=== PATIENT | male | born 1955 | race Caucasian/White ===

== ENCOUNTER 2022-01-17 08:05 | Outpatient (CLI) | payer MEDICARE, OTHER, SELFPAY ==
--- NOTE | 2022-01-17 08:15 | MR_ITS ---
[facility] [address] [facility] [address] Phone:?[phone] Fax:?[phone] Referring Physician Information: Librado Lee M.D. [address] [place] [id number] Phone:?[phone] Fax:?[phone] Patient:?Duke Camacho D.O.B:?1955 Sex:?Male Phone:?[phone] [facility] MRN:?[id number] Exam Date:?01/17/2022 ? EXAM: MRI of the RIGHT SHOULDER, without contrast CLINICAL: Male, 66 years old, with right shoulder pain and decreased range of motion. INDICATION: Evaluate rotator cuff. PRIOR SURGERY: None reported. PLAIN FILMS: None available. COMPARISONS: No prior MRIs available. TECHNICAL: Using a 1.5T MR scanner and a localizing shoulder surface coil: 3.0 mm?coronal obliques: PD, T2, STIR 3.0 mm?sagittal obliques: PD, T2 3.0 mm?axials: PD, T2 SEDATION: None. CONTRAST: None. IMPRESSION: 1. Findings in keeping with those which can be associated with any clinical evidence of intermediate approaching late stage acromiohumeral impingement/rotator cuff syndrome. 2. Broad-based attenuation of the distal supraspinatus tendon including smaller less than 1 cm slender full-thickness attenuation/tear and mild muscle atrophy. 3. Marked narrowing of acromiohumeral distance associated with subacromial spur/enthesophyte and thickened coracoacromial ligament. No significant inferior AC joint hypertrophy. 4. Fluid in the subcoracoid greater than subacromial heights deltoid bursa/space 5. Shallow deep surface attenuation of the distal superior subscapularis tendon without larger or full-thickness tear. 6. Mild long head of the biceps tendinosis. 7. No defined labral tears. 8. No glenohumeral chondromalacia/osteoarthritis. FINDINGS: Glenohumeral joint: Effusion/cyst: Moderate No paralabral ganglion cyst. Articular cartilage: Humeral head: No osteochondral abnormalities. Glenoid: No osteochondral abnormalities. Loose bodies: No demonstrable loose bodies. Inferior glenohumeral ligament/axillary recess: The axillary recess is normal in thickness and signal. No evidence of adhesive capsulitis or capsuloligamentous injury. Labrum: No labral tears. Bones: Proximal humerus: Mild cortical irregularity and hyperostosis of the anterior greater tuberosity underlies distal insertional rotator cuff tendinopathy/tear detailed below. The proximal humerus is otherwise intact. No humeral Hill-Sachs or reverse Hill- Sachs lesion/impaction or contusion. Glenoid: No fracture or marrow edema/pathology. No osseous Bankart lesion. Coracoacromial arch: Acromion morphology: Anterolateral downsloping of type II acromion with moderate anteriorly extending subacromial spur/enthesophyte and associated thickened/low- lying acromial attachment of the coracoacromial ligament contribute encroachment upon the subacromial space (sagittal PD & T2 series 7 & 8, images 7 & 6; coronal PD & T2 series 5 & 6, images 18-15). No mesoacromion or preacromion. Acromiohumeral space: Markedly narrowed at a minimum of 2 mm associated with the above morphology. Coracohumeral space: 10 mm bony distance. 7 mm soft tissue distance. 12 mm coracoid overlap. Acromioclavicular joint: Joint: Slight degenerative hypertrophy of acromioclavicular joint slightly encroaches upon the subacromial space without encroachment upon the underlying supraspinatus. Ligaments: Coracoclavicular ligaments are intact. Bursae: Subacromial-subdeltoid: Moderate subacromial-subdeltoid bursal edema/bursitis. Subcoracoid: Large amount of fluid in the subcoracoid space, unable to exclude the possibility of associated element of coracoid impingement although this is perhaps due to accumulation associated with extension of fluid from the subacromial space (sagittal T2 series 8, images 17-11; axial T2 series 3, images 43-55). Rotator cuff and muscles/tendons: Supraspinatus: Marked attenuation of the distal aspect of most of the supraspinatus tendon with more localized less than 1 cm slender full-thickness attenuation/tear, associated with small less than 5 mm of tendon fiber retraction. Associated mild decreased supraspinatus muscle bulk and Goutallier stage 2 fatty infiltration without more marked atrophy. Infraspinatus: Mild tendinosis of the adjacent anterior infraspinatus tendon without convincing defined tear. No tendon or myotendinous junction retraction. No muscle atrophy. Teres minor: No tendinopathy, tear or atrophy. Subscapularis: Shallow deep surface attenuation of the distal superior subscapularis tendon without full-thickness tear (axial image 18). Deltoid: No strain or atrophy. Biceps tendon, long head: Mild tendinosis of the intra-articular segment of the long head of the biceps tendon without tear or displacement and yet difficult to exclude early stage, or potential anatomic predisposition to, biceps david lesion (axial images 21-16; sagittal images 12-9). Axilla: No axillary masses or abnormally enlarged lymphadenopathy. [facility] Electronically signed on 01/18/2022 7:28:00 AM by Richard Kraus M.D.
== END 2022-01-17 08:06 | disposition home or self-care (01) ==
LOC: MRI 08:07
PROVIDERS: PCP Family Medicine; Visit Provider Orthopaedic Surgery
DX: M25.511 Pain in right shoulder (principal); M75.101 Unspecified rotator cuff tear or rupture of right shoulder, not specified as traumatic
CPT/HCPCS: 73221

== ENCOUNTER 2022-03-08 07:47 | Day surgery (SDC) | payer MEDICARE, OTHER, SELFPAY ==
[2022-03-08] VITALS (36 sets, daily range): BP systolic 97–129; BP diastolic 55–92; PULSE 65–88; RESP 8–23; TEMP 36.3–36.7; O2SAT 89–97; BMI 25.0
[2022-03-08] MEDS: ACETAMINOPHEN 500 MG TABLET 1000 MG PO (08:06)
[2022-03-08] MEDS: CELECOXIB 200 MG CAPSULE PO (08:06)
[2022-03-08] MEDS: SODIUM CHLORIDE 0.9 % (FLUSH) 10 ML SYRINGE IVF (08:20)
[2022-03-08] MEDS: LACTATED RINGERS 1000 ML 1,000 ML 100 ML IV ×2 (08:20→10:06)
[2022-03-08] MEDS: MIDAZOLAM HCL 1 MG/ML inj IVP (08:36)
[2022-03-08] MEDS: fentaNYL 100 MCG/2 ML inj IVP (08:36)
--- NOTE | 2022-03-08 08:37 | SUR.PREOP ---
TIME?OUT:?0835 PT/RN/MDA?VERIFICATION?OF?SURGICAL?SITE,?PROCEDURE,?AND?CONSENT OBTAINED?PRIOR?TO?INVASIVE?PROCEDURE.
[2022-03-08] MEDS: CEFAZOLIN 2 GM INJ IVP (09:15)
--- NOTE | 2022-03-08 10:50 | PM.ORPRC ---
Procedure Note Date of procedure: 03/08/22 Procedure: SURGEON: Librado Lee MD EMERGENCY DEPARTMENT COORDINATOR: Tanvi Allen PA-C PREOPERATIVE DIAGNOSIS: Right shoulder rotator cuff tear, AC joint arthrosis, biceps tendinopathy POSTOPERATIVE DIAGNOSIS: Right shoulder rotator cuff tear, AC joint arthrosis, biceps tendinopathy NAME OF OPERATION: Right shoulder arthroscopic subacromial decompression, distal clavicle excision, mini open rotator cuff repair, biceps tenodesis ANESTHESIA: Supraclavicular block plus general endotracheal ESTIMATED BLOOD LOSS: 5 mL COMPLICATIONS: None SPECIMENS: None DRAINS: None PREOPERATIVE ANTIBIOTICS: Ancef 2 grams INDICATIONS: The patient is a 66-year-old male with a history of right shoulder pain secondary to the above diagnoses. Despite appropriate non operative management, they continue to have symptoms. Operative intervention was recommended. The risks, benefits and expected outcomes were discussed in detail. These included but were not limited to: Infection, bleeding, injury to blood vessel or nerve, venous thromboembolism. All questions were answered to their satisfaction. PROCEDURE: A supraclavicular block was placed by Anesthesia. General anesthesia was administered. The patient was placed in the high beach chair position. The right shoulder was prepped and draped in the usual sterile fashion. The glenohumeral joint was infiltrated with 20 mL of normal saline with epinephrine. The posterior portal was established, the arthroscope was introduced. The anterior portal was established, Diagnostic arthroscopy was performed with findings as follows: The biceps has some tendinopathy, right at its insertion. The anterior, posterior and superior labrum are normal. Articular surfaces on the humeral head and glenoid are normal. There are no loose bodies. There is a full-thickness tear of the supraspinatus. The biceps was tenotomized with the arthroscopic scissors. The stump was debrided with the shaver. The arthroscope was placed in the subacromial space, the lateral portal was established. The Arthrex [place] was used to dissect the acromion free. The CA ligament was recessed off the anterior acromion, the AC joint was exposed. The acromioplasty was performed with the bur in the posterior portal. The bur was then placed in the lateral portal and the lateral and anterior aspect of the acromion were resected. The undersurface of the distal clavicle was resected through the lateral portal. Finally, the bur was placed in the anterior portal and the remainder of the distal clavicle was resected for a total of 10 mm. An accessory anterolateral portal was placed. The subacromial/subdeltoid bursa was aggressively debrided. There is a full-thickness tear of the supraspinatus. Arthroscopic instruments were removed. The accessory anterolateral portal was extended proximally and distally, subcutaneous dissection was taken with electrocautery to the deltoid. The deltoid was divided in line with its fibers. The static retractor was placed. The subacromial/subdeltoid bursa was debrided with the Barrientos scissors. There were a few remaining fibers still attached to the anterior aspect of the tuberosity. These were released with the 15 blade, extending into the bicipital groove and the upper border of the subscap. The superior glenohumeral ligament was released and debrided. The upper border of the lesser and the greater tuberosity were debrided to punctate bleeding bone using the arthroscopic bur. A fiber link was placed in the biceps. A fiber tape was placed in the subscap in an inverted mattress. The sutures were taken to a SwiveLock anchor located in the upper border of the lesser tuberosity, completing the upper subscap repair and biceps tenodesis. Two Arthrex [employer] SwiveLock anchors were placed just off the articular surface, in the greater tuberosity. Both limbs of the FiberWire and fiber tape were passed using the scorpion. A fiber link was placed in the leading edge of the rotator cuff x2. We tied the 2 central FiberWire sutures over the rotator cuff. We then proceeded with a lateral row of SwiveLock anchors x 2 crossing the FiberTape and incorporating the FiberWire and fiber link into each lateral row anchor. This provides an anatomic, watertight repair of the rotator cuff. There is no tension on the repair with the shoulder at 0? abduction. The wound was irrigated with normal saline off the pump. The deltoid was repaired with an 0 Vicryl in an interrupted [id number] fashion. Subcutaneous tissues were closed with a 3-0 Vicryl. Skin was closed with a 3-0 Monocryl in a subcuticular fashion. A dry dressing, polar care and sling were applied. Sponge and needle counts were correct x2. The patient tolerated the procedure well. There were no apparent complications. They were carefully transferred to the hospital bed and taken to the postanesthesia care unit in satisfactory condition. PLAN: The patient will be discharged to home. No active range of motion of the shoulder will be allowed for 6 weeks postoperatively. They can work on active range of motion of the elbow, wrist and fingers. They will follow up in the office next week for a wound check and an AP and transscapular Y-view of the shoulder prior to being seen.
[2022-03-08] MEDS: SODIUM CHLORIDE IRRIG SOLUTION 12,000 ML, EPINEPHrine 4 MG IRRIGATION (10:54)
--- NOTE | 2022-03-08 11:20 | W.ANESCHARGE ---
Anesthesia Charges Start Date/Time Anesthesia Start Date: 03/08/22 Anesthesia Start Time: 09:04 Stop Date/Time Anesthesia Stop Date: 03/08/22 Anesthesia Stop Time: 11:20 Summary Emergency: No
--- NOTE | 2022-03-08 12:19 | W.ANESCHARGE ---
Anesthesia Charges Start Date/Time Anesthesia Start Date: 03/08/22 Anesthesia Start Time: 09:04 Stop Date/Time Anesthesia Stop Date: 03/08/22 Anesthesia Stop Time: 11:20 Summary Emergency: No
--- NOTE | 2022-03-08 12:20 | P.NB_ITS ---
Nerve Block Nerve Block Date Seen: 03/08/22 Type of block requested by surgeon for post-operative analgesia: interscalene Side: right Time out performed: Yes Verification of patient name: Yes Verification of date of : Yes Site marking: site marked Name of person performing procedure: Frank Continuous monitoring Was continuous monitoring of O2 sat, B/P, court recording monitor, recorded every 15 minutes?: Yes Procedure Checklist: sterile prep, needles and gloves Ultrasound guided. Images saved: Yes Medications given in 5ml increments after negative aspiration: Ropivicaine %: 0.5 mL: 20 Needle gauge: 22 Decadron (mg): 10 Precedex (mcg): 25 Patient tolerated procedure well: Yes Block Charges Block Charge (with Pro Fee): Brachial Plexus Use of Ultrasound Machine for Block: Yes- US Guidance/pain block
== END 2022-03-08 13:28 | disposition home or self-care (01) ==
PROVIDERS: PCP Family Medicine; Visit Provider Orthopaedic Surgery
PROC: (CPT 23412; principal; 2022-03-08 09:30)
DX: M75.121 Complete rotator cuff tear or rupture of right shoulder, not specified as traumatic (principal); M75.21 Bicipital tendinitis, right shoulder; M19.011 Primary osteoarthritis, right shoulder
CPT/HCPCS: 29826; 29824; 29828; 23412; 1630; 64415; 76942; A9270; C1713; J0171; J0330; J0690; J1100; J2250; J2370; J2405; J2795; J3010; J7120

== ENCOUNTER 2022-06-21 13:00 | Outpatient (RCR) | payer MEDICARE, OTHER, SELFPAY | END 2022-06-21 13:27 | disposition home or self-care (01) | PROVIDERS: PCP Family Medicine; Visit Provider Physician Assistant Surgical | DX: M75.121 Complete rotator cuff tear or rupture of right shoulder, not specified as traumatic (principal); Z51.89 Encounter for other specified aftercare | CPT/HCPCS: 97110; 97140; 97161 ==

== ENCOUNTER 2023-09-05 00:56 | Emergency (ER) | payer MEDICARE, OTHER, SELFPAY ==
[2023-09-05 01:00] VITALS: BP 183/96; PULSE 64; RESP 20; TEMP 37.3; O2SAT 96; BMI 24.1
--- NOTE | 2023-09-05 01:11 | PC.NURSE ---
Pt came in writhing in pain with c/o right lower abd pain. States he has never had pain like this before. Denies any abd surgeries. Pt able to stand and void very concentrated dark lia urine. All cares explained.
--- NOTE | 2023-09-05 01:12 | ED.GENADULT ---
HPI - General Adult General Chief complaint: Abdominal Pain Stated complaint: severe abdominal pain Time Seen by Provider: 09/05/23 01:04 History of Present Illness HPI narrative: Old male presents to the ED with right-sided flank and lower abdominal pain that started 3 days ago. Initially dull and achy on Monday and actually improved significantly until 7:00 p.m. tonight when the pain came back suddenly an intensely, currently rating as 7/10. Radiates into the back and groin area a bit. No history of hernia. No trauma or injury. Last bowel movement was yesterday morning, normal. No bloody stools. No nausea or vomiting. He made his own dinner, tater tot casserole. No difficulty eating tonight. Did not try taking any Tylenol or ibuprofen. Pain has currently been present about 6 hours. No prior history of similar symptoms. No prior history of abdominal surgeries. No prior history of kidney stones. No family history of kidney stones. Pain does seem to come in intense waves. Past medical history notable for depression. Home meds are sertraline and simvastatin. Denies any prior cardiac history. Nonsmoker, denies alcohol intake. ROS is notable for the flank area symptoms as above only, otherwise denies times 12 systems. Related Data Home Medications Medication Instructions Recorded Confirmed sertraline 100 mg tablet 100 mg PO DAILY 01/10/22 09/05/23 simvastatin 40 mg tablet 40 mg PO .Bedtime 01/10/22 09/05/23 Previous Rx's Medication Instructions Recorded tamsulosin 0.4 mg capsule 0.4 mg PO DAILY #7 caps 09/05/23 Allergies Allergy/AdvReac Type Severity Reaction Status Date / Time codeine Allergy Intermediate Verified 05/30/22 13:15 [facility] Medical History Tendinopathy of hip ?M67.959 - Unspecified disorder of synovium and tendon, unspecified thigh (ICD-10) Labral tear of left hip joint ?S73.192A - Other sprain of left hip, initial encounter (ICD-10) Labral tear of right hip joint ?S73.191A - Other sprain of right hip, initial encounter (ICD-10) 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 - Other specified joint disorders, right hip (ICD-10) Osteoarthritis of right hip ?M16.11 - Unilateral primary osteoarthritis, right hip (ICD-10) Surgical History History of arthroscopy of right shoulder (03/08/22) ?Z98.890 - Other specified postprocedural states (ICD-10) Previous back surgery (~2010) ?Z98.890 - Other specified postprocedural states (ICD-10) Family History Sister Colon cancer Father Myocardial infarction Social History Narrative: , retired, no kids Smoking Status: Never smoker Do you use any of these nicotine containing products: None Second hand tobacco smoke exposure: No How often do you have a drink containing alcohol: never How often do you have six or more drinks on one occasion: Never AUDIT-C Alcohol total score: 0 Non-prescribed substance use: denies use Caffeine: No Are you now , , , , never or living with a partner: Social isolation score (0-1 are the most socially isolated patients): 0 Exam Const: Vital Signs, click to edit/add: Vital Signs - 24 hr 09/05/23 01:00 09/05/23 01:47 Temperature 99.1 F Pulse Rate [Pulse Oximeter] 64 Respiratory Rate 20 18 Blood Pressure [Le ft Upper Arm] 146/64 H Blood Pressure [Ri ght Upper Arm] 183/96 H Pulse Oximetry 96 94 Oxygen Delivery Me thod Room Air Room Air Documenting provider has reviewed patient's vital signs: yes Common normals: alert Other: Mild intermittent distress. Answers questions appropriately. Insight seems moderate. HENMT: Common normals: normocephalic Head and scalp: normocephalic Face and sinus: normal facial exam Mouth: oral and palatal mucosa normal Throat: posterior oropharynx normal Eye: Common normals: conjunctivae normal General eye: normal appearance of both eyes Conjunctiva: conjunctiva(e) normal Neck & C-Spine: Common normals: full ROM and no lymphadenopathy Resp: Common normals: normal respiratory effort and clear to auscultation bilaterally Effort & inspection: able to speak in complete sentences Auscultation: clear to auscultation bilaterally Cardio: Common normals: regular rate, regular rhythm, S1 normal heart sound, S2 normal heart sound and no murmurs Rate: regular rate Rhythm: regular rhythm Heart sounds: S1 normal and S2 normal GI: Common normals: Normal to inspection, nondistended, normoactive bowel sounds present, soft to palpation, no hepatosplenomegaly and no masses Palpation: soft and no hepatosplenomegaly Other: Mild tenderness to right side of abdomen but not focal. No mass, no hernias. No rebound tenderness or guarding : Other: Does have some right-sided CVA tenderness. Back & Pelvis: Thoracic spine/upper back: normal to inspection Lumbar spine/lower back: normal to inspection Extremity: Common normals: normal to inspection, normal capillary refill and no pedal edema Neuro: Sensorium/orientation: alert Motor exam: strength 5/5 throughout and no movement abnormalities noted Psych: Appearance: grossly normal Attitude: engaged Activity/motor behavior: appropriate eye contact Insight: fair Judgement: fair Skin: Common normals: no rashes or lesions noted General skin exam: no rashes or lesions noted Course Course ED Course: Right abdominal/flank pain most suspicious for kidney stone. Other differential diagnoses include appendicitis, bowel obstruction, pancreatitis, gallbladder disease, gastroenteritis, incarcerated hernia, musculoskeletal problem, radiculopathy, among others. Strong suspicion for kidney stone. Recommend urinalysis, typical abdominal labs. Zofran and Toradol for symptom control. Await findings. Reevaluation(s) Time of Reevaluation #1: 02:05 Reevaluation #1: Patient had marked improvement of his pain with Toradol. I reviewed the findings of the CT. I am measuring his stone at 5 mm, the radiologist at 4 mm. Labs are reassuring. Stone will likely pass with no intervention. Because I am getting in at 5 mm, I did place a referral to Urology though I doubt that he will need it. We discussed straining his urine, I do not think he needs a stone analysis I did not see a lot of other stones up in his kidneys. Will give prescription for Toradol. Gave 1st dose of Flomax here in the ED to help with spasm. Additional supply will be sent to his pharmacy. Counseled on weakness, symptoms of infection, severe hematuria all as reasons to come back to the ED. He verbalizes understanding and agreement. Counseled to push fluids, lots of movement. Referral center will call to schedule urology visit which can likely be canceled if he passes the stone. All questions answered, see discharge instructions Vital Signs Vital signs: Initial Vital Signs Temperature 99.1 F 09/05/23 01:00 Temperature Source Temporal Artery Scan 09/05/23 01:00 Pulse Rate 64 09/05/23 01:00 Respiratory Rate 20 09/05/23 01:00 Blood Pressure 183/96 H 09/05/23 01:00 Blood Pressure Mean 125 H 09/05/23 01:00 Blood Pressure Position Sitting 09/05/23 01:00 Pulse Oximetry 96 09/05/23 01:00 Oxygen Delivery Method Room Air 09/05/23 01:00 Vital Signs Temperature 99.1 F 09/05/23 01:00 Pulse Rate 64 09/05/23 01:00 Respiratory Rate 20 09/05/23 01:00 Blood Pressure 183/96 H 09/05/23 01:00 Pulse Oximetry 96 09/05/23 01:00 Oxygen Delivery Method Room Air 09/05/23 01:00 Temperature 99.1 F 09/05/23 01:00 Pulse Rate 64 09/05/23 01:00 Respiratory Rate 18 09/05/23 01:47 Blood Pressure 146/64 H 09/05/23 01:47 Pulse Oximetry 94 09/05/23 01:47 Oxygen Delivery Method Room Air 09/05/23 01:47 Medications Administered Medications: Generic Name Dose Route Start Last Admin Trade Name Freq PRN Reason Stop Dose Admin Sodium Chloride 1,000 mls @ 1,000 mls/hr 09/05/23 01:12 09/05/23 02:10 0.9 % Sodium Chloride 1000 Ml IV 09/05/23 02:11 Infused .Q1H ROBLES Infusion Ketorolac Tromethamine 15 mg 09/05/23 01:12 09/05/23 01:17 Ketorolac 15 Mg/Ml Inj IVP 09/05/23 01:13 15 mg ONCE ONE Administration Ondansetron HCl 4 mg 09/05/23 01:12 09/05/23 01:17 Ondansetron 2 Mg/Ml Inj IVP 09/05/23 01:13 4 mg ONCE ONE Administration Tamsulosin HCl 0.4 mg 09/05/23 01:53 09/05/23 02:10 Tamsulosin Hcl 0.4 Mg Capsule PO 09/05/23 01:54 0.4 mg ONCE ONE Administration Medical Decision Making Lab Data Lab results reviewed: Yes I reviewed the patient's lab results Lab results narrative: Reassuring, hematuria as expected with kidney stone Labs: Lab Results 09/05/23 Range/Units 01:05 WBC 9.53 (4.50-11.00) K/uL RBC 5.24 (4.30-5.90) m/uL Hgb 14.8 (13.5-17.5) gm/dL Hct 45.1 (37.0-53.0) % MCV 86 (80-100) fL MCH 28 (26-34) pg MCHC 33 (32-36) gm/dL RDW Coeff of Martina 12.6 (11.5-15.5) % Plt Count 192 (140-440) K/uL Neut % (Auto) 59.6 (42.0-72.0) % Lymph % (Auto) 31.5 (20-44) % [place] % (Auto) 7.2 (0.0-11.0) % Eos % (Auto) 1.4 (0.0-7.0) % Baso % (Auto) 0.2 (0.0-3.0) % Neut # (Auto) 5.68 (1.7-7.0) K/uL Lymph # (Auto) 3.00 H (0.90-2.90) K/uL [place] # (Auto) 0.70 (0.00-0.90) K/UL Eos # (Auto) 0.13 (0.00-0.50) K/uL Baso # (Auto) 0.02 (0.00-0.30) K/uL Abs Immat Gran (auto) 0.01 (0.00-0.30) K/uL Imm/Tot Granulo (auto) 0.1 % Sodium 141 (135-149) mmol/L Potassium 3.8 (3.6-5.1) mmol/L Chloride 106 (96-114) mmol/L Carbon Dioxide 27 (20-32) mmol/L Anion Gap 8 (7-15) mEq/L BUN 23 (7-30) mg/dL Creatinine 1.0 (0.5-1.5) mg/dL Estimated Creat Clear 70.70 Estimated GFR 82 ml/min Glucose 111 (60-115) mg/dL Lactate 1.3 (0.5-1.9) mmol/L Calcium 10.5 (8.4-10.6) mg/dL Total Bilirubin 1.2 (0.1-1.5) mg/dL AST 39 H (12-35) U/L ALT 42 (4-50) U/L Alkaline Phosphatase 84 (40-150) U/L C-Reactive Protein 1.0 (0.5-1.0) mg/dL Total Protein 8.3 (6.0-8.3) g/dL Albumin 4.7 (3.3-5.0) g/dL Lipase 123 (23-300) U/L Urine Color Yellow (Yellow) Urine Appearance Cloudy A (Clear) Urine pH 6.0 (5.0-8.5) Ur Specific [place] >= 1.030 (1.000-1.030) Urine Protein 1+ A (Negative) Urine Glucose (UA) Negative (Negative) Urine Ketones Negative (Negative) Urine Blood 3+ A (Negative) Urine Nitrite Negative (Negative) Urine Bilirubin Negative (Negative) Urine Urobilinogen 1.0 (0.2-1.0) Ur Leukocyte Esterase Negative (Negative) Urine RBC 25-50 A (0-2) Urine WBC 2-5 (0-5) Ur Squamous Epith Cells Few (None-Few) Urine Bacteria Moderate A (None) Imaging Data CT scan - abdomen: Attestation: I have reviewed the pertinent imaging results. My impression: 5 mm mid right ureteral stone, mild hydro Radiologist's impression: IMPRESSION: 1. 4 mm obstructing stone in the mid right ureter with moderate right hydronephrosis. 2. Enlarged prostate gland. Discharge Plan Discharge Clinical Impression: Right ureteral stone Patient Disposition: Home w/ Parent or Adult Condition: Improved Instructions: How to Strain Your Urine (ED), Ureteral Stones (ED) Additional Instructions: As we discussed, you have a kidney stone in your right ureter, the tube that connects the kidney and the bladder. It is about half way down the tube at this point. As it continues on his journey, your pain will moved more towards the lower front part of the abdomen. We will give you a strainer to strain your urine. As discussed, you will notice a lot of [place] material in your urine. I am measuring the stone at 5 mm, the radiologist measured it at 4. The stone will most likely pass with no need of any intervention. To help it pass, you will need to drink lots of fluids and move around frequently during the awake hours. I have given you a supply of Toradol, and anti-inflammatory pain medication. He will take this every 6 hours. I would plan to take it automatically every 6 hours for at least the next 48 hours. After that, you may take it on an as-needed basis. If you are straining your urine, you will likely notice when the stone passes. It may take a week or more for the stone to pass. Because the stone is measuring at 5 mm for me, I am going to place a referral to the urologist, you will be called later today to schedule this. You will likely not need this appointment, but they will call you to schedule just in case things do not progress as expected. Try to make the appointment for a few days from now and cancel if the stone passes. I am also giving you a prescription for Flomax, also known as tamsulosin. As we discussed, there is a potential benefit that this can help dilate open the ureter and make the stone more easy to pass. Anecdotally, I notice that it tends help with the spasms in the ureter from the stone, making the process a little more comfortable for you. Blood in the urine is common, please do not be alarmed. Sometimes there are complications such as infection, full kidney obstruction or damage to the ureter. This is unlikely with your stone because it is not overly large. But if you start having high fevers, severe weakness to the point where it is difficult for you to care for herself at home or other alarming symptoms, please come back to the emergency department. Remember that you may also use Tylenol 1000 mg every 6 hours as needed for your pain. Do not take additional Aleve or ibuprofen while you are using the Toradol. Activity Level: No Restrictions Discharge Diet: Regular Prescriptions: New tamsulosin 0.4 mg capsule 0.4 mg PO DAILY Qty: 7 0RF No Action simvastatin 40 mg tablet 40 mg PO .Bedtime sertraline 100 mg tablet 100 mg PO DAILY Follow Up/Referrals: Ion Knight MD [Referring] - 2 Days (Any available urologist is fine. 5 mm right mid ureteral stone, will likely pass on own, low risk for complications.) Dexter Recinos MD [Primary Care Provider] - Stand Alone Forms: [email or web address] Info Instructions
[2023-09-05] MEDS: 0.9 % SODIUM CHLORIDE 1000 ml 1,000 ML IV (01:16)
[2023-09-05] MEDS: ONDANSETRON 2 MG/ML inj 4 MG IVP (01:17)
[2023-09-05] MEDS: KETOROLAC 15 MG/ML inj IVP (01:17)
[2023-09-05 01:19] LABS: Appearance Urine Cloudy (Clear); Bilirubin Urine Negative (Negative); Blood Urine 3+ (Negative); Color Urine Yellow (Yellow); Glucose Urine Negative (Negative); Ketones Urine Negative (Negative); Leukocyte Esterase Urine Negative (Negative); Nitrite Urine Negative (Negative); Protein Urine 1+ (Negative); Specific Gravity Urine >= 1.030 (1.000-1.030)
--- NOTE | 2023-09-05 01:19 | CT_ITS ---
Patient: NIKOLAS MCGOVERN Facility:?[facility] Patient ID:?[id number] Site Patient ID:?[id number]. Site :?[id number] Study:?CT-Abdomen/Pelvis W/O-09/05/2023 1:54:21 AM Ordering Physician:Laura Escobedo Final Report: INDICATION: Right flank pain since Monday. TECHNIQUE: CT of the abdomen and pelvis without IV contrast. Coronal and sagittal reconstructions. COMPARISON: None. FINDINGS: The unenhanced liver, spleen, pancreas, and adrenal glands are normal in appearance. Cholelithiasis without evidence of gallbladder inflammation. No biliary dilation. There is a 4 mm obstructing stone in the mid right ureter with moderate right hydronephrosis and perinephric fat stranding (series 2 image 81). No left hydronephrosis or ureteral dilation. Bilateral parapelvic renal cysts. No significant bladder wall thickening. Moderately enlarged prostate gland indenting on the bladder base. No small bowel dilation. Moderate amount of stool throughout the colon. Negative appendix. No intraperitoneal free air or fluid. No lymphadenopathy. Aortoiliac vascular calcifications. Small bilateral fat containing inguinal hernias. Minimal bibasilar atelectasis or scarring. Calcified granulomas in the right lower lobe and left lower lobe. Degenerative changes of the spine. IMPRESSION: 1. 4 mm obstructing stone in the mid right ureter with moderate right hydronephrosis. 2. Enlarged prostate gland. Please note that all CT scans at this facility use dose modulation, iterative reconstruction, and/or weight-based dosing when appropriate to reduce radiation dose to as low as reasonably achievable. Dictated by Meche Jhaveri MD @ 09/05/2023 2:07:02 AM Signed by:?Meche Jhaveri MD @09/05/2023 2:07:02 AM (Electronic Signature)
[2023-09-05 01:20] LABS: Lactate* 1.3 mmol/L (0.5-1.9)
[2023-09-05 01:21] LABS: Basophils Absolute Auto 0.02 K/uL (0.00-0.30); Basophils Percent Auto 0.2 % (0.0-3.0); Eosinophils Absolute Auto 0.13 K/uL (0.00-0.50); Eosinophils Percent Auto 1.4 % (0.0-7.0); Hematocrit 45.1 % (37.0-53.0); Hemoglobin* 14.8 gm/dL (13.5-17.5); Immature Granulocytes Abs Auto 0.01 K/uL (0.00-0.30); Immature Granulocytes Pct Auto 0.1 %; Lymphocytes Percent Auto 31.5 % (20-44); Mean Corpuscular HGB Conc 33 gm/dL (32-36); Mean Corpuscular Hemoglobin 28 pg (26-34); Mean Corpuscular Volume 86 fL (80-100); Monocytes Percent Auto 7.2 % (0.0-11.0); Neutrophils Absolute Auto 5.68 K/uL (1.7-7.0); Neutrophils Percent Auto 59.6 % (42.0-72.0); Platelet Count* 192 K/uL (140-440); RDW Coefficient of Variation % 12.6 % (11.5-15.5); Red Blood Count 5.24 m/uL (4.30-5.90); White Blood Count* 9.53 K/uL (4.50-11.00)
[2023-09-05 01:24] LABS: Albumin* 4.7 g/dL (3.3-5.0); Chloride* 106 mmol/L (96-114); RBC Urine 25-50 (0-2); Slide Review Reflex No; Squamous Epithelial Cell Urine Few (None-Few)
[2023-09-05 01:25] LABS: Bacteria Urine Moderate; Potassium* 3.8 mmol/L (3.6-5.1); Sodium* 141 mmol/L (135-149)
[2023-09-05 01:27] LABS: Anion Gap 8 mEq/L (7-15); Aspartate Amino Transferase* 39 U/L (12-35); Bilirubin Total* 1.2 mg/dL (0.1-1.5); Carbon Dioxide* 27 mmol/L (20-32); Estimated Glomerular Filt Rate 82 ml/min
[2023-09-05 01:28] LABS: Alanine Aminotransferase* 42 U/L (4-50); Alkaline Phosphatase* 84 U/L (40-150); Blood Urea Nitrogen* 23 mg/dL (7-30); Calcium* 10.5 mg/dL (8.4-10.6); Glucose* 111 mg/dL (60-115); Lipase* 123 U/L (23-300); Total Protein* 8.3 g/dL (6.0-8.3)
--- NOTE | 2023-09-05 01:39 | PC.NURSE ---
Pt states pain is much better. Pt to CT via slava
[2023-09-05 01:47] VITALS: BP 146/64; RESP 18; O2SAT 94
[2023-09-05] MEDS: TAMSULOSIN HCL 0.4 MG CAPSULE PO (02:10)
== END 2023-09-05 07:52 | disposition home or self-care (01) ==
PROVIDERS: Emergency Provider Family Medicine; PCP Family Medicine
DX: N20.1 Calculus of ureter (principal)
CPT/HCPCS: 36415; 74176; 80053; 81001; 81003; 83605; 83690; 85025; 86140; 87086; 96374; 96375; 99284; A9270; J1885; J2405; J7030